=== PATIENT | male | born 1990 | race African-American/Black ===

== ENCOUNTER 2016-09-21 04:23 | Emergency (ER) | payer MEDICAID ==
[~2016-09-21] VITALS: Ht 175.3 cm; Wt 95.3 kg
[2016-09-21] MEDS ORDERED: ONDANSETRON HCL/PF 4 MG/2 ML VIAL IVP ONE (06:30)
[2016-09-21] MEDS ORDERED: IV NS 0.9% 1,000 ML BAG IV ONE (06:30)
[2016-09-21] MEDS ORDERED: ONDANSETRON HCL/PF 4 MG/2 ML VIAL ONE (06:32)
[2016-09-21] MEDS ORDERED: IV NS 0.9% 1,000 ML ONE (06:32)
[2016-09-21] MEDS ORDERED: IV SET PRIMARY 1 EA INFUS.SET MC ONE (06:32)
[2016-09-21 06:42] LABS: BASOPHILS % (AUTO) 0.3 % (0.0-2.0); DIFF TOTAL % 100 %; EOSINOPHILS # (AUTO) 0.3 /CMM (0.0-0.7); EOSINOPHILS % (AUTO) 3.1 % (0.0-6.0); HEMATOCRIT 43 % (39-51); LYMPHOCYTES % (AUTO) 21.8 % (20.0-44.0); MEAN CORPUSCULAR HEMOGLOBIN 28 PG (26.0-33.0); MEAN CORPUSCULAR HGB CONC 33 g/dl (31.0-36.0); MEAN CORPUSCULAR VOLUME 86 fL (80-96); MONOCYTES # (AUTO) 0.8 /CMM (0.1-1.30); MONOCYTES % (AUTO) 8.3 % (2.0-12.0); NEUTROPHILS # (AUTO) 6.2 /CMM (1.8-8.9); NEUTROPHILS % (AUTO) 66.5 % (43.0-81.0); PLATELET COUNT (AUTO) 334 /CMM (150-450); RED BLOOD CELL COUNT(AUTO) 4.96 MIL/uL (4.5-6.0); WHITE BLOOD COUNT (AUTO) 9.3 K/uL (4.3-11.0)
[2016-09-21 06:49] LABS: CREATININE 0.8 mg/dL (0.6-1.3)
[2016-09-21 06:55] LABS: BILIRUBIN,DIRECT 0.1 mg/dL (0.0-0.2); BILIRUBIN,TOTAL 0.4 mg/dL (0.2-1.0); INDIRECT BILIRUBIN 0.3 mg/dL (0.0-1.1); TOTAL PROTEIN, SERUM 7.6 g/dL (6.4-8.2)
[2016-09-21 07:41] VITALS: BP 131/72
== END 2016-09-21 07:42 | disposition home or self-care (01) ==
LOC: ER 04:29
DX: R10.31 Right lower quadrant pain (principal); F17.200 Nicotine dependence, unspecified, uncomplicated
CPT/HCPCS: 36415; 74176; 80048; 80076; 83690; 85025; 96361; 96374; 99285; A4606; J2405; J7030; Z7610